=== PATIENT | male | born 1965 | race Caucasian/White ===

== ENCOUNTER 2025-01-24 15:54 | Emergency (ER) | payer BC, MEDICAID ==
[~2025-01-24] VITALS: Ht 185.4 cm; Wt 81.6 kg
[2025-01-24 15:56] VITALS: BP 147/91
[2025-01-24] MEDS ORDERED: HYDR-3972 PO (17:11)
[2025-01-24 17:24] VITALS: BP 147/91; O2SAT 96
[2025-01-24 19:48] LABS: WBC, BODY FLUID 4207 /cu. mm (0-200/cu.mm)
[2025-01-24 20:09] LABS: MONOCYTES,BODY FLUID 18 %
[2025-01-24 21:14] LABS: TOTAL VOLUME,BODY FLUID 33 mL
== END 2025-01-24 17:25 | disposition home or self-care (01) ==
LOC: ER 16:05
DX: M71.22 Synovial cyst of popliteal space [Baker], left knee (principal); F17.200 Nicotine dependence, unspecified, uncomplicated; M25.312 Other instability, left shoulder
CPT/HCPCS: 36415; 76881; 83986; 87070; 87205; A4606; A4663